=== PATIENT | female | born 1945 | race Asian ===

== ENCOUNTER 2018-08-17 17:22 | Emergency (ER) | payer OTHER ==
--- NOTE | 2018-08-17 17:30 | EDPHY ---
H & P Stated Complaint: N/V HYPERTENSION Time Seen by Provider: 08/17/18 17:30 HPI/ROS: CHIEF COMPLAINT: Vomiting HISTORY OF PRESENT ILLNESS: The patient presents the ED after she has had 2 episodes of vomiting and intractable nausea today. The patient denies any acute abdominal pain. She denies chest pain or shortness of breath. The patient was noted to have systolic blood pressure of 180 at home. The patient denies any headache, numbness or weakness. The patient denies any diarrhea. She denies any recent antibiotic use or travel outside the [place]. She has no history of abdominal surgery. REVIEW OF SYSTEMS: A comprehensive 10 point review of systems is otherwise negative aside from elements mentioned in the history of present illness. Source: Patient Exam Limitations: No limitations - Personal History Current Tetanus Diphtheria and Acellular Pertussis (TDAP): Yes - Medical/Surgical History Hx Asthma: No Hx Chronic Respiratory Disease: No Hx Diabetes: No Hx Cardiac Disease: No Hx Renal Disease: No Hx Cirrhosis: No Hx Alcoholism: No Hx HIV/AIDS: No Hx Splenectomy or Spleen Trauma: No Other PMH: HTN - Social History Smoking Status: Never smoked - Physical Exam Exam: General Appearance: Alert, no distress Eyes: Pupils equal and round no pallor or injection ENT, Mouth: Mucous membranes moist Respiratory: There are no retractions, lungs are clear to auscultation Cardiovascular: Regular rate and rhythm Gastrointestinal: Abdomen is soft and nontender, no masses, bowel sounds normal Neurological: 5/5 strength all 4 extremities Skin: Warm and dry, no rashes Musculoskeletal: Neck is supple nontender Extremities: symmetrical, full range of motion Constitutional: Initial Vital Signs Temperature (C) 36.7 C 08/17/18 17:26 Heart Rate 79 08/17/18 17:26 Respiratory Rate 18 08/17/18 17:26 Blood Pressure 178/97 H 08/17/18 17:26 O2 Sat (%) 97 08/17/18 17:26 O2 Delivery Mode Room Air Allergies/Adverse Reactions: No Known Allergies Allergy (Unverified 08/17/18 17:25) Home Medications: Medication Instructions Recorded Bp Meds 08/17/18 Ondansetron Odt [Zofran Odt] 4 mg PO Q4PRN PRN #6 tab 08/17/18 Medical Decision Making - Diagnostics EKG Interpretation: EKG: Complete interpretation has been separately recorded in the [employer] archive. Summary impression: Sinus rhythm, rate 82, no ST segment elevation or depression noted ED Course/Re-evaluation: Patient presents the ED with several episodes of vomiting today. The patient is nontoxic and well-appearing upon arrival. She is slightly hypertensive with a systolic blood pressure of 170/80. The patient had an IV established. She received a L of normal saline. She had mild hyponatremia likely secondary to hypovolemia. Patient was treated with a L of normal saline in the emergency department. She underwent serial neurologic examinations. I re-evaluated the patient at 6:30 p.m.. And she is feeling much better. The patient has no complaints. Blood pressure is currently 170/80. The patient is on losartan. She reports her blood pressure is typically well controlled. She is scheduled to return to [place] tomorrow. She is comfortable following up with her primary care provider in [place] for a blood pressure recheck. She understands return to the ED for recurrent vomiting, headache, chest pain or shortness of breath. Differential Diagnosis: Differential diagnosis considered includes gastroenteritis, hypertensive urgency , metabolic derangement, dehydration - Data Points Laboratory Results: Laboratory Results 08/17/18 17:35 08/17/18 17:35 08/17/18 08/17/18 17:35 17:35 WBC 15.22 10^3/uL H 10^3/uL (3.80-9.50) RBC 5.31 10^6/uL 10^6/uL (4.18-5.33) Hgb 13.5 g/dL g/dL (12.6-16.3) Hct 41.1 % % (38.0-47.0) MCV 77.4 fL L fL (81.5-99.8) MCH 25.4 pg L pg (27.9-34.1) MCHC 32.8 g/dL g/dL (32.4-36.7) RDW 13.1 % % (11.5-15.2) Plt Count 341 10^3/uL 10^3/uL (150-400) MPV 10.0 fL fL (8.7-11.7) Neut % (Auto) 81.5 % H % (39.3-74.2) Lymph % (Auto) 12.9 % L % (15.0-45.0) [place] % (Auto) 4.7 % % (4.5-13.0) Eos % (Auto) 0.2 % L % (0.6-7.6) Baso % (Auto) 0.4 % % (0.3-1.7) Nucleat RBC Rel Count 0.0 % % (0.0-0.2) Absolute Neuts (auto) 12.40 10^3/uL H 10^3/uL (1.70-6.50) Absolute Lymphs (auto) 1.97 10^3/uL 10^3/uL (1.00-3.00) Absolute Monos (auto) 0.71 10^3/uL 10^3/uL (0.30-0.80) Absolute Eos (auto) 0.03 10^3/uL 10^3/uL (0.03-0.40) Absolute Basos (auto) 0.06 10^3/uL 10^3/uL (0.02-0.10) Absolute Nucleated RBC 0.00 10^3/uL 10^3/uL (0-0.01) Immature Gran % 0.3 % % (0.0-1.1) Immature Gran # 0.05 10^3/uL 10^3/uL (0.00-0.10) Sodium 129 mEq/L L mEq/L (135-145) Potassium 3.7 mEq/L mEq/L (3.5-5.2) Chloride 92 mEq/L L mEq/L (97-110) Carbon Dioxide 25 mEq/l mEq/l (22-31) Anion Gap 12 mEq/L mEq/L (6-14) BUN 12 mg/dL mg/dL (7-23) Creatinine 0.6 mg/dL mg/dL (0.6-1.0) Estimated GFR > 60 Glucose 113 mg/dL H mg/dL (70-100) Calcium 9.5 mg/dL mg/dL (8.5-10.4) Total Bilirubin 0.4 mg/dL mg/dL (0.1-1.4) Conjugated Bilirubin 0.1 mg/dL mg/dL (0.0-0.5) Unconjugated Bilirubin 0.3 mg/dL mg/dL (0.0-1.1) AST 24 IU/L IU/L (14-46) ALT 20 IU/L IU/L (9-52) Alkaline Phosphatase 92 IU/L IU/L (38-126) Total Protein 7.7 g/dL g/dL (6.3-8.2) Albumin 4.2 g/dL g/dL (3.5-5.0) Lipase 100 IU/L IU/L (23-300) Medications Given: Discontinued Medications Sodium Chloride (Ns) 1,000 mls @ 0 mls/hr IV EDNOW ONE; Wide Open PRN Reason: Protocol Stop: 08/17/18 17:39 Last Admin: 08/17/18 17:48 Dose: 1,000 mls Ondansetron HCl (Zofran) 4 mg IVP EDNOW ONE Stop: 08/17/18 17:39 Last Admin: 08/17/18 17:48 Dose: 4 mg Departure - Departure Disposition: Home, Routine, Self-Care Clinical Impression: Vomiting, Hypertension Condition: Good Instructions: Acute Nausea and Vomiting (ED) Additional Instructions: 1. Please have your primary care provider recheck your blood pressure next week. 2. Zofran as needed for nausea. 3. Return to the ED for chest pain, shortness of breath, headache, numbness, weakness or other concerns.
[2018-08-17] MEDS ORDERED: NS 1,000 ML IV ONE (17:38)
[2018-08-17] MEDS ORDERED: ONDANSETRON 4 MG/2 ML VIAL IVP ONE (17:38)
[2018-08-17 17:50] LABS: PLATELET COUNT 341 10^3/uL (150-400)
--- NOTE | 2018-08-17 17:58 | CPEKG ---
Test Reason : OPEN Blood Pressure : / mmHG Vent. Rate : 082 BPM Atrial Rate : 082 BPM P-R Int : 169 ms QRS Dur : 081 ms QT Int : 406 ms P-R-T Axes : 037 013 034 degrees QTc Int : 475 ms Sinus rhythm Confirmed by Chito Vasques ([id number]) on 08/17/2018 5:57:58 PM Referred By: Chito Vasques Confirmed By:Chito Vasques
[2018-08-17 18:17] VITALS: BP 170/86
== END 2018-08-17 19:05 | disposition home or self-care (01) ==
DX: R11.10 Vomiting, unspecified (principal); I10 Essential (primary) hypertension; E86.9 Volume depletion, unspecified
CPT/HCPCS: 93005; 96361; 96374; 99284; J2405